=== PATIENT | male | born 1965 | race African-American/Black ===

== ENCOUNTER 2021-10-25 13:21 | Outpatient (CLI) | payer OTHER, SELFPAY ==
--- NOTE | ~2021-10-25 | PE_ITS ---
EXAMINATION: PET_PETPSMAST_PT DATE: 10/25/2021 15:14 INDICATION: Malignant neoplasm of the prostate TECHNIQUE: 10.478 mCi of pipflufolastat F-18 (18-F-DCFPyL) was administered i.v. Low dose computed t omography (CT) images were acquired from the base of the brain to the base of the brain to the proxim al thighs for attenuation correction and anatomic localization. Positron emission tomography (PET) im ages were acquired in the same distribution beginning 60 minutes after injection. Images including fu sed PET/CT images were reconstructed in axial, coronal, and sagittal planes. Automated exposure contr ol technique was employed. The dose-length product was 1048.27mGy-cm. COMPARISON: None FINDINGS: Head/neck: Typical pattern of symmetric physiologic increased activity in the lacrimal, parotid and submandibula r glands as well as along the mucosa of the oropharynx and nasopharynx. No pathologically enlarged ce rvical lymphadenopathy or suspicious foci of increased uptake in the visualized head or neck. Chest: Mild emphysema. No suspicious pulmonary nodules, pneumonia, pulmonary edema or pleural effusion. Hear t size is normal. No pericardial or pleural effusion. Small sliding-type hiatal hernia. Thoracic aort a is normal in caliber. No pathologically enlarged thoracic lymphadenopathy. Abdomen/pelvis/proximal thighs: Physiologic renal accumulation and excretion of activity in the kidneys, bladder and along portions o f ureters. Normal degree and slightly heterogenous pattern of increased uptake throughout the liver a nd spleen without radiologic correlate or dominant PSMA avid lesion. The gallbladder, pancreas and bi lateral adrenal glands are normal. Moderate uptake scattered throughout the bowels with typical duode nal predominance and without radiologic correlate, also likely physiologic. There is approximately 1. 5-2 cm focus of prominent increased activity in the region of the right peripheral zone of the prosta te with maximal SUV of 15.0 which may be related to the reported primary prostate cancer. There is a second smaller focus of significantly less intense activity with maximal SUV of 4.6 peripheral to the right posterior bladder wall in the region of the right seminal vesicle/obturator region. This locat ed posterior to the course of the ureter on the CT images although the bladder is more distended on t he PET images and could not exclude that this represents activity in the ureter and subsequent clinical mental health counselor ior displaced by the distention of the bladder. No other abnormal foci of increased uptake or patholo gically enlarged lymphadenopathy in the abdomen, pelvis or proximal thighs. Musculoskeletal: Mild thoracolumbar levoscoliosis with moderate spondylosis. 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 No suspicious lytic, blastic or PSMA avid bone lesions. IMPRESSION: 1. Focus of relatively intense uptake in the region of the right peripheral zone of the prostate like ly representing the reported primary prostate cancer. 2. Small focus of less intense activity located in the region of the right seminal vesicle which coul d represent metastatic disease. Could not exclude however that this represents a small amount of urin e activity within the distal right ureter which is likely changed in position relative to the locatio n on the CT images due to increased distention of the bladder on the PET images. 3. No pathologically enlarged lymphadenopathy, suspicious bone lesions or other suspicious foci of PS MA activity to suggest more widespread metastatic disease. Reviewed, dictated and finalized at location B. IMPRESSION: 1. Focus of relatively intense uptake in the region of the right peripheral zon e of the prostate likely representing the reported pr
== END 2021-10-25 13:22 | disposition home or self-care (01) ==
PROVIDERS: Visit Provider Urology
DX: C61 Malignant neoplasm of prostate (principal)
CPT/HCPCS: 78815; A9595

== ENCOUNTER 2022-07-07 11:46 | Outpatient (CLI) | payer OTHER, SELFPAY ==
--- NOTE | ~2022-07-07 | PE_ITS ---
EXAMINATION: PET_PETPSMAST_PT DATE: 07/07/2022 14:08 INDICATION: Malignant neoplasm of the prostate with rising PSA level post prior prostatectomy TECHNIQUE: 11.152 mCi of pipflufolastat F-18 (18-F-DCFPyL) was administered i.v. Low dose computed t omography (CT) images were acquired from the base of the brain to the base of the brain to the proxim al thighs for attenuation correction and anatomic localization. Positron emission tomography (PET) im ages were acquired in the same distribution beginning 96 minutes after injection. Images including fu sed PET/CT images were reconstructed in axial, coronal, and sagittal planes. Automated exposure contr ol technique was employed. The dose-length product was 625.56mGy-cm. COMPARISON: None FINDINGS: Head/neck: Typical pattern of symmetric physiologic increased activity in the lacrimal, parotid and submandibula r glands as well as along the mucosa of the nasal and oral cavities, the iesha-, naso- and hypopharynx, the glottis and esophagus. No pathologically enlarged cervical lymphadenopathy or suspicious foci of increased uptake in the visualized head or neck. Chest: Lungs are clear with no suspicious pulmonary nodules, pneumonia, pulmonary edema or pleural effusion. Heart size is normal. No pericardial effusion. Small sliding type hiatal hernia. Thoracic aorta is n ormal in caliber. No pathologically enlarged or abnormally PSMA avid thoracic lymphadenopathy. Abdomen/pelvis/proximal thighs: Physiologic renal accumulation and excretion of activity in the kidneys, bladder and along portions o f ureters. Normal degree and slightly heterogenous pattern of increased uptake throughout the liver a nd spleen without radiologic correlate or dominant PSMA avid lesion. The gallbladder, pancreas and bi lateral adrenal glands are normal. Moderate uptake scattered throughout the bowels with typical duode nal and proximal jejunal predominance and without radiologic correlate, also likely physiologic. Norm al appendix. Small fat-containing left inguinal hernia. Interval prostatectomy. No other abnormal foc i of increased uptake or pathologically enlarged lymphadenopathy in the abdomen, pelvis or proximal t highs. Musculoskeletal: Mild uptake at the lateral left ninth rib where there is approximately 1 cm expansile lytic lesion wi th peripheral sclerotic margins and with maximal SUV of 3.1. The lesion appears unchanged on the CT i maging and compared with the prior study. No significant uptake at the time of the prior study althou gh sensitivity has increased since the prior study due to utilization of a new PET reconstruction alg orithm. Unchanged likely benign small sclerotic lesion lesion at the posterior left 11th rib without evident PSV may uptake on either the prior or current study. No other suspicious lytic, blastic or PS MA avid bone lesions. IMPRESSION: 1. Mild increased uptake associated with an unchanged small expansile lesion with thin sclerotic sidney ins at the lateral left ninth rib with no other suspicious bone lesions. Given the lack of interval c hange, the relatively low activity in the appearance of the bone would favor chronic fibrous dysplasi a over metastatic disease. Correlate with any earlier outside imaging if available. 2. Status post prostatectomy with no other lesions suspicious for metastatic disease. Assessment for residual disease at the prostatectomy bed is limited by high urine activity in the partially decompre ssed bladder. Reviewed, dictated and finalized at location A. IMPRESSION: 1. Mild increased uptake associated with an unchanged small expansile lesion wi th thin sclerotic margins at the lateral left ninth rib with no other suspiciou s bone lesions. Given the lack of interval change, the relatively low ac
== END 2022-07-07 11:47 | disposition home or self-care (01) ==
LOC: ANHIMG 11:51
PROVIDERS: PCP Urology; Visit Provider Urology
DX: C61 Malignant neoplasm of prostate (principal); M89.9 Disorder of bone, unspecified
CPT/HCPCS: 78815; A9595

== ENCOUNTER 2023-01-26 13:48 | Outpatient (CLI) | payer OTHER, SELFPAY ==
--- NOTE | ~2023-01-26 | PE_ITS ---
EXAMINATION: PET_PETPSMAST_PT DATE: 01/26/2023 16:06 INDICATION: Malignant neoplasm of prostate. TECHNIQUE: 8.618 mCi of piflufolastat F-18 was administered intravenously. Low dose computed tomograp hy (CT) images were acquired from the base of the brain to the proximal thighs for attenuation correc tion and anatomic localization. Automated exposure control was employed. Dose-length product (DLP) wa s 547 mGy-cm. Positron emission tomography (PET) images were acquired in the same distribution. COMPARISON: PET CT 07/07/2022, 10/25/21 FINDINGS: Head/neck: There are no pathologically enlarged lymph nodes. Chest: There is mild emphysema. No pleural effusion. Cardiomegaly is noted. No pericardial effusion. There is an old healed fracture of anterior left ninth rib. Abdomen/pelvis/proximal thighs: The liver, gallbladder, spleen, pancreas, adrenal glands, and kidneys are normal. There is a small sliding hiatal hernia. There are no dilated loops of bowel. There is di verticulosis of the colon without evidence of diverticulitis. The appendix is normal. There is a left inguinal hernia containing fat. There is an umbilical hernia containing fat. There are no pathologic ally enlarged lymph nodes. There is no free intraperitoneal fluid. There are changes of prostatectomy . There are chronic benign bone islands in left ilium. IMPRESSION: 1. No evidence of metastatic disease. Reviewed, dictated and finalized at location A.
== END 2023-01-26 13:49 | disposition home or self-care (01) ==
PROVIDERS: PCP Urology; Visit Provider Urology
DX: C61 Malignant neoplasm of prostate (principal)
CPT/HCPCS: 78815; A9595

== ENCOUNTER 2023-10-11 12:32 | Outpatient (CLI) | payer OTHER, SELFPAY ==
--- NOTE | ~2023-10-11 | PE_ITS ---
EXAMINATION: PET_PETPSMAST_PT DATE: 10/11/2023 15:09 INDICATION: Malignant neoplasm of the prostate TECHNIQUE: 3.903 mCi of Locametz Ga-68(63-Oq-ttwzlbdwns) was administered i.v. Low dose computed hyun ography (CT) images were acquired from the base of the brain to the base of the brain to the proximal thighs for attenuation correction and anatomic localization. Positron emission tomography (PET) imag es were acquired in the same distribution beginning 89 minutes after injection. Images including fuse d PET/CT images were reconstructed in axial, coronal, and sagittal planes. Automated exposure control technique was employed. The dose-length product was 1245.55mGy-cm. COMPARISON: 01/26/2023 FINDINGS: Head/neck: Typical pattern of symmetric physiologic increased activity in the lacrimal, parotid and submandibula r glands as well as along the mucosa of the nasal and oral cavities, pharynx and hypopharynx. No pat hologically enlarged cervical lymphadenopathy or suspicious foci of increased uptake in the visualize d head or neck. Chest: No suspicious pulmonary nodules, pneumonia or pleural effusion. Heart size is normal. No pericardial effusion. Thoracic aorta is normal in caliber. No pathologically enlarged or PSMA avid thoracic lymph adenopathy. Small sliding-type hiatal hernia. Abdomen/pelvis/proximal thighs: Physiologic renal accumulation and excretion of activity in the kidneys, bladder and along portions o f ureters. Status post prostatectomy. No evident abnormal nodular soft tissue density at the prostate ctomy bed or abnormal activity peripheral to the intraluminal bladder urine activity to suggest local recurrence. Normal degree and slightly heterogenous pattern of increased uptake throughout the liver and spleen without radiologic correlate or dominant PSMA avid lesion. The gallbladder, pancreas and bilateral adrenal glands are normal. Moderate uptake scattered throughout the bowels with typical duo denal and proximal jejunal predominance and without radiologic correlate, also likely physiologic. Sc attered colonic diverticulosis without adjacent from trace stranding to suggest diverticulitis. Mercedes l appendix. Couple loops of bowel extend across the wide mouthed orifice of a small to moderate-sized fat-containing umbilical hernia. Small fat-containing left inguinal hernia. There are normal-sized b ilateral inguinal lymph nodes. Interval change in size and 8 mm right inguinal lymph node with mild r elative increased uptake still relatively low with maximal SUV of 3.7, increased from 2.9 on 3 and 3.4 on 01/26/2023. No other abnormal foci of increased uptake or pathologically enlarged lympha denopathy in the abdomen, pelvis or proximal thighs. Musculoskeletal: There are some fatty muscular atrophy and heterotopic ossification at the bilateral adductor compartm ents as well as at the posterior compartment of the right thigh suggesting sequela of old trauma. No abnormal suspicious lytic, blastic or PSMA avid bone lesions. IMPRESSION: 1. Slightly more prominent but still relatively low PSMA activity at an unchanged 8 mm normal-sized r ight inguinal lymph node with increase in maximal SUV from 2.9 on study dated 07/07/2022 to 3.7 on the current study. This along with the still relatively low but increasing PSA level raises some concern for very early metastatic disease. No other lesions suspicious for metastatic disease. Reviewed, dictated and finalized at location B. IMPRESSION: 1. Slightly more prominent but still relatively low PSMA activity at an unchang ed 8 mm normal-sized right inguinal lymph node with increase in maximal SUV fro m 2.9 on study dated 07/07/2022 to 3.7 on the current study. This along with the still relatively low but increasing PSA level raises some concern fo
== END 2023-10-11 12:33 | disposition home or self-care (01) ==
PROVIDERS: PCP Urology; Visit Provider Urology
DX: C61 Malignant neoplasm of prostate (principal)
CPT/HCPCS: 78815; A9596

== ENCOUNTER 2023-11-03 14:15 | Outpatient (CLI) | payer OTHER, SELFPAY ==
--- NOTE | ~2023-11-03 | DEXA_ITS ---
Bone Density Report Name: TAY ESPINAL Age: 58 Sex: Male Ethnicity: White Date of : 1965 Indication: cancer; Referring Provider: GALEN ASKEW Study: Bone densitometry was performed. Exam Date: November 03, 2023 Accession number: [id number] Bone Density: Region BMD T-score Z-score Classification AP Spine(L1-L4) 1.142 0.5 1.0 Normal Femoral Neck (Left) 0.689 -1.8 -0.9 Osteopenia Total Hip (Left) 0.861 -1.1 -0.7 Osteopenia Femoral Neck (Right) 0.663 -2.0 -1.1 Osteopenia Total Hip (Right) 0.817 -1.4 -1.0 Osteopenia Total Hip Mean 0.839 -1.3 -0.9 Osteopenia World Health Organization criteria for BMD impression classify patients as: Normal (T-score at or above -1.0), Osteopenia (T-score between -1.0 and -2.5), or Osteoporosis (T-score at or below -2.5). 10-year Fracture Risk(1): Major Osteoporotic Fracture 6.1% Hip Fracture 0.9% Reported Risk Factors: [place] (), Neck BMD=0.663, BMI=29.6 (1) FRAX(R) Version 3.08. Fracture probability calculated for an untreated patient. Fracture probability may be lower if the patient has received treatment. Clinical Information Provided by Patient: Has used the following medications: Vitamin D, Calcium Has the following medical conditions: Cancer Patient maximum height was 70.5 No regular weight bearing exercise Drinks caffeinated beverages Impression: The patient has low bone mass, based on the Right Femoral Neck T-score. The patient has an estimated ten-year risk of hip fracture of 0.9% and an estimated ten-year risk of major fracture of 6.1%, based on the WHO FRAX algorithm. Discussion: BONE DENSITY IS LOW AT ONE OR MORE SKELETAL SITES. This patient's lowest T-score is low at one or more skeletal sites. It meets the World Health Organization's (WHO) criteria for ?low bone mass? (T-score between -1.0 and -2.5). The patient's 10-year risk of fracture as calculated by FRAX is less than the threshold where pharmacological therapy is recommended by the National Osteoporosis Foundation (NOF). However, all treatment decisions require clinical judgment and consideration of individual patient factors, including patient preferences, comorbidities, previous drug use, risk factors not captured in the FRAX model (e.g., frailty, falls, vitamin D deficiency, increased bone turnover, interval significant decline in bone density) and possible under or overestimation of fracture risk by FRAX. The patient should follow a healthful lifestyle (good nutrition with adequate calcium and vitamin D, and appropriate weight-bearing exercise). Follow-Up: Consider repeating this study in 2 to 3 years to reassess this patient's status, or sooner if there is some new clinical indication. Reported by: NARDA on 11/03/2023 2:58:00 PM.
== END 2023-11-03 14:16 | disposition home or self-care (01) ==
PROVIDERS: PCP Urology; Visit Provider Urology
DX: M81.0 Age-related osteoporosis without current pathological fracture (principal); M85.89 Other specified disorders of bone density and structure, multiple sites
CPT/HCPCS: 77080

== ENCOUNTER 2023-11-28 06:39 | Outpatient (CLI) | payer OTHER, SELFPAY ==
--- NOTE | ~2023-11-28 | MR_ITS ---
EXAMINATION: MR pelvis wo/w con DATE: 11/28/2023 08:01 INDICATION: Malignant neoplasm of prostate. TECHNIQUE: Magnetic resonance imaging (MRI) of the pelvis was performed without and with 19 mL MultiH ance intravenous contrast. COMPARISON: PET/CT 10/11/2023 FINDINGS: There are changes of prostatectomy. There are no pathologically enlarged lymph nodes. There is no ann e intraperitoneal fluid. There is a left inguinal hernia containing fat. There is severe lumbar spond ylosis. IMPRESSION: 1. Prostatectomy. No evidence of metastatic disease. Reviewed, dictated and finalized at location A.
== END 2023-11-28 06:40 | disposition home or self-care (01) ==
PROVIDERS: PCP Urology; Visit Provider Radiology Radiation Oncology
DX: C61 Malignant neoplasm of prostate (principal); Z90.79 Acquired absence of other genital organ(s)
CPT/HCPCS: 72197; A9577